=== PATIENT | female | born 1950 | race African-American/Black ===

== ENCOUNTER → 2016-09-11 | Day surgery (SDC) | payer OTHER ==
[~2016-09-11] VITALS: Ht 162.6 cm; Wt 81.4 kg
[~2016-09-11] MED LIST: AMLO5TAB2 PO; ASPI81CH CHEW; COZA100T PO; CYCLOPENTOLATE HCL 1% OPHT SOLN 2 ML BTL ONE; EMPA1TAB PO; FLURBIPROFEN 0.03% OPHT SOLN 2.5 ML BTL ONE; FURO20TA PO; GLIP10TA6 PO; HYALURONIDASE/LIDOCAINE/EPINEPHRINE/BUPIVACAINE 6 ML SYR RIGHT EYE ONE; LIDOCAINE HCL 1% 30 ML VIAL ONE; METF1000 PO; METO100T PO; MIDAZOLAM HCL 2 MG/2 ML VIAL ONE; MULT-6 PO; MYCO500T PO; PHENYLEPHRINE HCL 10% OPTH SOLN 5 ML BTL ONE; PROM25TA5 PO; PROPARACAINE HCL 0.5% OPHT SOLN 15 ML BTL ONE; PROPOFOL 200 MG/20 ML AMP ONE; ROSU20 PO; SODIUM CHLORID 0.9% 500 ML INJ 500 ML ONE; TROPICAMIDE 1% OPHT SOLN 15 ML BTL ONE; VITATAB56 PO; ZOFR4TAB3 SL
[2016-09-11 08:47] VITALS: BP 137/85; PULSE 56; RESP 18; TEMP 97.7; O2SAT 100
[2016-09-11 09:05] VITALS: PULSE 52
[2016-09-11] MEDS: TOBRAMYCIN/DEXAMETHASONE OPTH OINT 3.5 GM TUBE ONE ×2 (09:46→10:01)
[2016-09-11 10:35] VITALS: BP 124/67; PULSE 60; RESP 16; TEMP 97.8; O2SAT 95
--- NOTE | 2016-09-15 09:59 | MP ---
cc: GREY NORMAN M.D. DATE OF SURGERY: 09/11/2016 [facility] #[id number] PREOPERATIVE DIAGNOSIS Visually significant cataract, right eye. POSTOPERATIVE DIAGNOSIS Visually significant cataract, right eye. OPERATION Phacoemulsification with posterior chamber lens implantation, right eye. SURGEON Grey Norman MD ANESTHESIA Retrobulbar with MAC. COMPLICATIONS None. PROCEDURE After informed consent was obtained, the patient was brought into the operative suite and placed on appropriate monitors by the Anesthesia Service. The patient had received a prior retrobulbar injection of local anesthetic by the Anesthesia Service in the holding area. The patient's operative eye was then prepped and draped in the usual sterile fashion. A wire lid speculum was placed. A paracentesis incision was made in the peripheral cornea with a 1 mm cecil keratome. The anterior chamber was filled with viscoelastic. The anterior chamber was then entered through a stepped, clear corneal incision using a sharp 3 mm cecil keratome. A circular tear capsulorrhexis was then made with a bent needle cystitome. Following hydrodissection of the lens nucleus with balanced saline, phaco-emulsification of the nucleus was performed using a modified chopping technique. The remaining cortex was removed with irrigation/aspiration. The prior two procedures were both performed using the handpieces of the [employer] phaco unit. The capsular bag was then filled with viscoelastic. The intraocular lens was then injected into the capsular bag and positioned. The type of intraocular lens and its power can be found elsewhere in this chart. The remaining viscoelastic was then removed from the anterior chamber with the IA handpiece. The anterior chamber was reformed with balanced saline. The wound was then closed securely with stromal hydration. It was found to be watertight to an intraocular pressure of at least 30 mmHg by palpation. A small amount of balanced salt solution was then removed through the paracentesis site and the intraocular pressure at the end of the case was approximately 20 by palpation. All drapes were then removed. TobraDex ointment was then placed in the eye, which was closed beneath a semi-pressure patch dressing. The patient tolerated this procedure well and left the operating room awake and alert. The patient is to follow-up in my office in the morning. 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 Further, a Malyugin Ring was then used to maintain pupillary mydriasis during phacoemulsification and lens implantation. MD RIANNA Archuleta/NIGEL /1:22 PM /9:51 AM
== END | disposition home or self-care (01) ==
LOC: PHSDC 07:17
PROVIDERS: ATTEND Optometrist Occupational Vision
DX: H25.811 Combined forms of age-related cataract, right eye (principal)
CPT/HCPCS: 00142; 66984; J2250; J7040; V2632